=== PATIENT | female | born 2000 | race African-American/Black ===

== ENCOUNTER 2023-11-05 19:05 | Emergency (ER) | payer BC ==
[~2023-11-05] VITALS: Ht 165.1 cm; Wt 78.0 kg
[~2023-11-05 19:05] MED LIST: KETOROLAC 60MG/2ML VIAL IM NR
[2023-11-05 19:21] VITALS: O2SAT 100
[2023-11-05] MEDS ORDERED: ONDANSETRON 4MG ODT PO STA (19:28)
[2023-11-05] MEDS ORDERED: KETOROLAC 60MG/2ML VIAL IM STA (19:28)
[2023-11-05] MEDS ORDERED: ONDANSETRON 4MG ODT PO NR (19:28)
[2023-11-05 21:10] LABS: HEMATOCRIT. 39.2 % (36.0-48.0); HEMOGLOBIN. 13.2 g/dL (12.0-16.0); MEAN CORPUSCULAR HEMOGLOBIN 29.8 pg (28.0-32.0); MEAN CORPUSCULAR HGB CONC 33.7 g/dL (31.0-37.0); MEAN CORPUSCULAR VOLUME 88.3 fL (81.0-99.0); MEAN PLATELET VOLUME 7.1 fl (7.4-10.4); PLATELET 412 x1000/uL (130-400); RED BLOOD CELL COUNT 4.43 mill/uL (4.2-5.4); RED CELL DISTRIBUTION WIDTH 13.5 % (11.6-14.6); WHITE BLOOD COUNT 11.8 x1000/uL (4.5-11.0)
[2023-11-05 21:11] LABS: DIFFERENTIAL COMMENT 1
[2023-11-05] MEDS ORDERED: IBUPROFEN 600MG TABLET PO ONE (21:15)
[2023-11-05 21:23] LABS: PROTHROMBIN TIME 11.1 sec (9.6-11.0)
[2023-11-05 21:28] LABS: ALANINE AMINOTRANSFERASE 68 IU/L (10-49); ALBUMIN 4.7 g/dL (3.2-4.8); ASPARTATE AMINOTRANSFERASE 39 IU/L (<34); BILIRUBIN TOTAL 0.8 mg/dL (0.1-1.0); CALCIUM 9.3 mg/dL (8.7-10.4); CARBON DIOXIDE 20 mEq/L (21-32); CHLORIDE 105 mEq/L (98-107); CREATININE 0.7 mg/dL (0.6-1.0); GLUCOSE 99 mg/dL (70-105); POTASSIUM 3.3 mEq/L (3.5-5.1); PROTEIN TOTAL 8.8 g/dL (6.0-8.3); SODIUM 137 mEq/L (136-145); UREA NITROGEN BLOOD 15 mg/dL (9-23)
[2023-11-05 21:33] LABS: PLATELET ESTIMATE INCREAS
[2023-11-05] MEDS ORDERED: AMOX-494 MT (22:45)
[2023-11-05] MEDS ORDERED: SODIUM CHLORIDE 0.9% 1,000 ML IV ONE (22:45)
[2023-11-05] MEDS ORDERED: ACETAMINOPHEN 325MG TABLET PO ONE (22:45)
[2023-11-05] MEDS ORDERED: FAMOTIDINE 20MG/2ML VIAL IV ONE (22:45)
[2023-11-06 00:24] VITALS: BP 130/74; PULSE 100; RESP 16; TEMP 99
[2023-11-06] MEDS ORDERED: ALBU6.7H15 INH (00:30)
[2023-11-06] MEDS ORDERED: ACET-2708 MT (00:30)
== END 2023-11-06 00:42 | disposition home or self-care (01) ==
LOC: ER 19:05
DX: R50.9 Fever, unspecified (principal); R11.2 Nausea with vomiting, unspecified; J02.9 Acute pharyngitis, unspecified; Z20.822 Contact with and (suspected) exposure to COVID-19
CPT/HCPCS: 80053; 87430; 83690; 85025; 85610; 87804 ×2; 36415; 71045; 76705; 96361; 96372; 96374; 99285; 87426; Q0162; J3490; J1885; J7030; Z7610